=== PATIENT | male | born 1960 | race Caucasian/White ===

== ENCOUNTER 2017-10-08 22:42 | Emergency (ER) | payer OTHER ==
[~2017-10-08] VITALS: Ht 188 cm; Wt 112.5 kg
[2017-10-08] MEDS ORDERED: ENOXAPARIN120 MG/0.1 SUBQ (23:16)
[2017-10-08] MEDS ORDERED: FLONASE 0.05%50 MCG NASAL (23:28)
[2017-10-08] MEDS ORDERED: AFRIN30 ML (23:29)
== END 2017-10-09 00:26 | disposition home or self-care (01) ==
LOC: ER 22:42
DX: R13.10 Dysphagia, unspecified (principal); F17.210 Nicotine dependence, cigarettes, uncomplicated; J45.909 Unspecified asthma, uncomplicated; Z98.890 Other specified postprocedural states